=== PATIENT | male | born 1990 | race African-American/Black ===

== ENCOUNTER 2016-11-02 06:59 | Emergency (ER) | payer OTHER ==
[2016-11-02] MEDS ORDERED: DIPH,PERTUS(ACELL)TETVAC-LF 0.5 ML VIAL IM ONE (08:12)
--- NOTE | 2016-11-02 08:15 | ED ---
Wound/Laceration HPI - General Chief Complaint: Wound/Laceration Stated Complaint: [facility]/left hand lac Time Seen by Provider: 11/02/16 08:08 Source: patient, RN notes reviewed Mode of arrival: ambulatory Limitations: no limitations - History of Present Illness Initial Comments: Patient's 26-year-old male presents to the emergency room for evaluation of hand laceration. Patient states he was using a box cutting knife and accidentally cut his left hand. Patient denies any numbness or tingling in his thumb. Patient states he still full range of motion of his thumb. Patient is not sure of his last tetanus vaccine was. Patient denies taking blood thinners. - Related Data Home Medications Medication Instructions Recorded Confirmed No Known Home Medications [No 11/02/16 11/02/16 Known Home Medications] Allergies Allergy/AdvReac Type Severity Reaction Status Date / Time No Known Allergies Allergy Verified 11/02/16 08:24 Review of Systems ROS Statement: Those systems with pertinent positive or pertinent negative responses have been documented in the HPI. ROS Other: All systems not noted in ROS Statement are negative. Past Medical History Past Medical History: No Reported History History of Any Multi-Drug Resistant Organisms: None Reported Past Surgical History: Orthopedic Surgery Past Psychological History: No Psychological Hx Reported Smoking Status: Current every day smoker Past Alcohol Use History: Occasional Past Drug Use History: Marijuana General Exam - General Exam Comments Initial Comments: Sitting in exam room, no acute distress. Limitations: no limitations General appearance: alert, in no apparent distress Head exam: Present: atraumatic, normocephalic, normal inspection Eye exam: Present: normal appearance ENT exam: Present: normal exam Neck exam: Present: normal inspection Respiratory exam: Absent: respiratory distress Extremities exam: Present: normal inspection Left Hand Wrist exam: Present: full ROM, laceration (5cm superficial laceration over the thenar eminance ) Neuro motor exam: Present: wrist extension intact, thumb opposition intact, thumb IP flexion intact, thumb adduction intact, fingers 2-5 abduction intact Vascular: Present: normal capillary refill (Capillary refill less than 2 seconds ), radial pulse (2+), ulnar pulse (2+) Back exam: Present: normal inspection Neurological exam: Present: alert, oriented X3, CN II-XII intact, normal gait Psychiatric exam: Present: normal affect, normal mood Skin exam: Present: warm, dry. Absent: rash Course Vital Signs 11/02/16 07:09 Temperature 98.1 F Pulse Rate 83 Respiratory 18 Rate Blood Pressure 122/71 O2 Sat by Pulse 100 Oximetry Procedures - Laceration Laceration #1 Consent Obtained: verbal consent Indication: laceration Site: other (left hand) Size (cm): 5 Description: linear Depth: simple, single layer Type of Sutures: other (Dermabond) Patient Tolerated Procedure: well, no complications Medical Decision Making - Medical Decision Making Patient is a 26-year-old male presents emergency room for evaluation left hand laceration. Laceration repaired with Dermabond. Patient updated on his tetanus vaccine. Return parameters discussed. Disposition Clinical Impression: Laceration of left hand Disposition: HOME SELF-CARE Condition: Good Instructions: Laceration (ED), Skin Adhesive Care (ED) Additional Instructions: Dermabond will fall off in 7-10 days. Do not soak the area in water. Take Tylenol or Motrin as needed for discomfort. Please follow up with primary care provider in 1-2 days. If any new symptom arises or symptoms worsen, return to ER as soon as possible. Referrals: None,Stated [Primary Care Provider] - 1-2 days Time of Disposition: 08:42
[2016-11-02] MEDS ORDERED: TOPICAL SKIN ADHESIVE 1 EACH AMP TOPICAL ONE (08:41)
[2016-11-02 09:04] VITALS: BP 115/67; PULSE 64; RESP 16; TEMP 97.6
== END 2016-11-02 08:59 | disposition home or self-care (01) ==
LOC: EC 06:59
DX: S61.412A Laceration without foreign body of left hand, initial encounter (principal); F17.200 Nicotine dependence, unspecified, uncomplicated; Z23 Encounter for immunization; W26.0XXA Contact with knife, initial encounter; Y92.69 Other specified industrial and construction area as the place of occurrence of the external cause; Y93.89 Activity, other specified; Y99.0 Civilian activity done for income or pay
CPT/HCPCS: 12002; 90471; 90715; 99282